=== PATIENT | female | born 1945 | race Caucasian/White ===

== ENCOUNTER 2017-02-25 10:17 | Emergency (ER) | payer MEDICARE, OTHER ==
[2017-02-25] MEDS ORDERED: ONDANSETRON HCL 4 MG/2 ML VIAL ONE (11:05)
[2017-02-25] MEDS ORDERED: BISMUTH SUBSALICYLATE 118 ML BTL ONE (11:39)
--- NOTE | 2017-02-25 13:42 | ER PHYSICIAN DOCUMENTATION ---
Physician Documentation [facility] Name:Jessika Salmeron Age:71 yrs Sex:Female :1945 Arrival Date:02/25/2017 Time:10:17 Bed4 Private MD: Amauri Ngo Disposition: 02/25/17 11:05 Discharged to Home/Self Care. Impression: Gastroenteritis vs. Food Poisoning, Dehydration. - Condition is Good. - Discharge Instructions: DIARRHEA VOMIT Viral 6yAdult - GASTROENTERITIS, Viral [6y-Adult]. - Prescriptions for Zofran 4 mg Oral Tablet - take 1 tablet by ORAL route every 12 hours .; 20 tablet. - Medical Reconciliation form form. - Follow up: Private Physician; When: As needed; Reason: Worsening of condition. - Problem is new. - Symptoms have improved. HPI: 02/25 10:52 This 71 yrs old Female presents to ER via Private Vehicle with complaints of sc Diarrhea. 10:52 The patient presents to the emergency department with diarrhea, without any complaints sc of abdominal pain. Onset: The symptom(s)/episode began/occurred 1 week(s) ago. Possible causes: travel, returned from [place], 4days ago. Associated signs and symptoms: Pertinent positives: lightheaded with standing. Severity of symptoms: At their worst the symptoms were moderate. Historical: - Allergies: SULFA (SULFONAMIDES); - Home Meds: 1. losartan 50 mg oral tab 1 tab once daily for Hypertension 2. hydrochlorothiazide 25 mg oral tab 1 tab once daily 3. allopurinol 100 mg oral tab 1 tab once daily for Gout 4. omeprazole 20 mg oral cpDR 1 cap once daily 5. tramadol 50 mg oral tab 2 tabs every 6 hours as needed for Pain 6. Colcrys 0.6 mg oral tab 1 tab once daily 7. acetaminophen 325 mg oral tab 2 tabs every 6 hours as needed for Pain 8. atorvastatin 40 mg oral tab 1 tab once daily - PMHx: Hypertension; GOUT; ARTHRITIS; macular degeneration; hyperlipidemia; - PSHx: gastric bypass; Hysterectomy; Knee surgery; parathyroid; - Tetanus: < 10 years. - Ebola Screening: : Patient negative for fever greater than or equal to 101.5 degrees Fahrenheit, and additional compatible Ebola Virus Disease symptoms. Patient denies exposure to infectious person. Patient denies travel to an Ebola-affected area in the 21 days before illness onset. . - Immunization history: Pneumococcal vaccine is up to date, Flu Vaccine < 1 year. - Social history: Smoking status: Patient states was never smoker of tobacco. ROS: 10:53 Constitutional: Negative for fever, chills, and weight loss. sc Eyes: Negative for injury, pain, redness, and discharge. ENT: Negative for injury, pain, and discharge. Neck: Negative for injury, pain, and swelling. Cardiovascular: Negative for chest pain, palpitations, and edema. Respiratory: Negative for shortness of breath, cough, wheezing, and pleuritic chest pain. Back: Negative for injury and pain. MS/Extremity: Negative for injury and deformity. Skin: Negative for injury, rash, and discoloration. 10:53 Neuro: Negative for headache, weakness, numbness, tingling, and seizure. sc 10:53 Abdomen/GI: Positive for nausea, diarrhea. Exam: Head/Face: Normocephalic, atraumatic. Eyes: Pupils equal round and reactive to light, extra-ocular motions intact. Lids and lashes normal. Conjunctiva and sclera are non-icteric and not injected. Cornea within normal limits. Periorbital areas with no swelling, redness, or edema. Neck: Trachea midline, no thyromegaly or masses palpated, and no cervical lymphadenopathy. Supple, full range of motion without nuchal rigidity, or vertebral point tenderness. No meningismus. Chest/axilla: Normal chest wall appearance and motion. Nontender with no deformity. No lesions are appreciated. Cardiovascular: Regular rate and rhythm with a normal S1 and S2. No gallops, murmurs, or rubs. Normal PMI, no JVD. No pulse deficits. Respiratory: Lungs have equal breath sounds bilaterally, clear to auscultation and percussion. No rales, rhonchi or wheezes noted. No increased work of breathing, no retractions or nasal flaring. 10:53 Back: No spinal tenderness. No costovertebral tenderness. Full range of motion. sc 10:53 Constitutional: The patient appears alert, awake, in obvious distress, mildly distressed, dehydrated. 10:53 ENT: Mouth: Oral mucosa: dry. 10:53 Abdomen/GI: Inspection: abdomen appears normal, Bowel sounds: hyperactive, Palpation: abdomen is soft and non-tender. 10:53 Skin: Turgor: is poor. Vital Signs: 10:30 BP 108 / 92; Pulse 80; Resp 16; Temp 98.2; Pulse Ox 92% on R/A; Weight 82.55 kg; Height lp 5 ft. 3 in. (160.02 cm); Pain 0/10; 11:00 BP 135 / 50; Pulse 61; Resp 16; Pulse Ox 91% on R/A; lp 12:00 BP 132 / 55; Pulse 68; Resp 16; Pulse Ox 97% on R/A; lp 13:39 BP 131 / 60; Pulse 67; Resp 16; Pulse Ox 93% on R/A; lp 10:30 Body Mass Index 32.24 (82.55 kg, 160.02 cm) lp MDM: 10:23 Patient medically screened. ak 10:54 Differential diagnosis: viral gastroenteritis, gastroenteritis. Data reviewed: vital sc signs, nurses notes, and as a result, I will continue to observe the patient, administer IV fluids. Counseling: I had a detailed discussion with the patient and/or guardian regarding: the historical points, exam findings, and any diagnostic results supporting the discharge/admit diagnosis, the need for outpatient follow up, to return to the emergency department if symptoms worsen or persist or if there are any questions or concerns that arise at home. Response to treatment: the patient's symptoms have markedly improved after treatment. 11:06 ED course: stool collection and outpt orders given to patient. ak 02/25 10:36 Order name: I & O; Complete Time: 10:52 ak 02/25 10:36 Order name: NPO; Complete Time: 10:52 ak Dispensed Medications: 10:38 Drug: Zofran 4 mg; Route: IVP; Infused Over: 2 mins; Site: left antecubital; lp 11:28 Follow up: Response: No adverse reaction; Nausea is decreased lp 10:52 Drug: NS 0.9% 1000 ml; Route: IV; Rate: bolus; Site: left antecubital; lp 11:24 Follow up: Response: No adverse reaction; No change in condition; IV Status: Completed lp infusion 11:25 Drug: NS 0.9% 1000 ml; Route: IV; Rate: 250 ml/hr; Site: left antecubital; lp 12:31 Follow up: IV Status: Completed infusion lp 12:31 Follow up: Response: No adverse reaction; No change in condition lp 11:28 Drug: Pepto-Bismol 30 ml; Route: PO; lp 12:02 Follow up: Response: No adverse reaction; No change in condition lp 12:40 Drug: NS 0.9% 1000 ml; Route: IV; Rate: bolus; Site: left antecubital; lp 13:30 Follow up: Response: No adverse reaction; No change in condition lp 13:30 Follow up: IV Status: Completed infusion; IV Intake: 1000ml lp Point of Care Testing: Urine Dip: 13:15 pH: 5.5; ; Specific [place]: 1.005; Ketones: Negative; Glucose: Negative; Protein: lp Negative; Leukocytes: Negative; Nitrite: Negative ; Blood: Negative; Bilirubin: Negative ; Urobilinogen: Normal Signatures: Tiki Mcclellan RN RN Amauri Lopez MD MD ak
--- NOTE | 2017-02-25 13:42 | ER NURSING DOCUMENTATION ---
Nurse's Notes [facility] Name:Jessika Salmeron Age:71 yrs Sex:Female :1945 Arrival Date:02/25/2017 Time:10:17 Bed4 Private MD: Diagnosis:Gastroenteritis vs. Food Poisoning;Dehydration Presentation: 02/25 10:29 Presenting complaint: Patient states: nausea, vomiting, diarrhea x 1 week. Presenting lp complaint:. Transition of care: Home. 10:29 Acuity: RAUL 3 lp 10:29 Method Of Arrival: Private Vehicle lp Triage Assessment: 10:35 General: Appears in no apparent distress, Behavior is appropriate for age. Pain: lp Complains of pain in abdomen. GI: Reports diarrhea, intolerance of fluids, intolerance of food, nausea, vomiting. Historical: - Allergies: SULFA (SULFONAMIDES); - Home Meds: 1. losartan 50 mg oral tab 1 tab once daily for Hypertension 2. hydrochlorothiazide 25 mg oral tab 1 tab once daily 3. allopurinol 100 mg oral tab 1 tab once daily for Gout 4. omeprazole 20 mg oral cpDR 1 cap once daily 5. tramadol 50 mg oral tab 2 tabs every 6 hours as needed for Pain 6. Colcrys 0.6 mg oral tab 1 tab once daily 7. acetaminophen 325 mg oral tab 2 tabs every 6 hours as needed for Pain 8. atorvastatin 40 mg oral tab 1 tab once daily - PMHx: Hypertension; GOUT; ARTHRITIS; macular degeneration; hyperlipidemia; - PSHx: gastric bypass; Hysterectomy; Knee surgery; parathyroid; - Tetanus: < 10 years. - Ebola Screening: : Patient negative for fever greater than or equal to 101.5 degrees Fahrenheit, and additional compatible Ebola Virus Disease symptoms. Patient denies exposure to infectious person. Patient denies travel to an Ebola-affected area in the 21 days before illness onset. . - Immunization history: Pneumococcal vaccine is up to date, Flu Vaccine < 1 year. - Social history: Smoking status: Patient states was never smoker of tobacco. Screenin:36 Infectious Disease Risk None. Abuse screen: Denies threats or abuse. Denies injuries lp from another. Nutritional screening: No deficits noted. Vital Signs: 10:30 BP 108 / 92; Pulse 80; Resp 16; Temp 98.2; Pulse Ox 92% on R/A; Weight 82.55 kg; Height lp 5 ft. 3 in. (160.02 cm); Pain 0/10; 11:00 BP 135 / 50; Pulse 61; Resp 16; Pulse Ox 91% on R/A; lp 12:00 BP 132 / 55; Pulse 68; Resp 16; Pulse Ox 97% on R/A; lp 13:39 BP 131 / 60; Pulse 67; Resp 16; Pulse Ox 93% on R/A; lp 10:30 Body Mass Index 32.24 (82.55 kg, 160.02 cm) lp ED Course: 10:19 Patient arrived in ED. claudia 10:23 Amauri Lopez MD is Attending Physician. sc 10:29 Tiki Mcclellan RN is Primary Nurse. lp 10:30 Triage completed. lp 10:[address] Lopez notified. lp 10:36 Valuables Remains with patient Patient has correct armband on for positive lp identification. Placed in gown. Bed in low position. Call light in reach. Side rails up X 1. 10:51 Inserted peripheral IV: 20 gauge in left antecubital area. lp 13:15 Urine collected. Clean catch specimen. lp 13:41 Discontinued IV intact, bleeding controlled, pressure dressing applied. lp Administered Medications: 10:38 Drug: Zofran 4 mg; Route: IVP; Infused Over: 2 mins; Site: left antecubital; lp 11:28 Follow up: Response: No adverse reaction; Nausea is decreased lp 10:52 Drug: NS 0.9% 1000 ml; Route: IV; Rate: bolus; Site: left antecubital; lp 11:24 Follow up: Response: No adverse reaction; No change in condition; IV Status: Completed lp infusion 11:25 Drug: NS 0.9% 1000 ml; Route: IV; Rate: 250 ml/hr; Site: left antecubital; lp 12:31 Follow up: IV Status: Completed infusion lp 12:31 Follow up: Response: No adverse reaction; No change in condition lp 11:28 Drug: Pepto-Bismol 30 ml; Route: PO; lp 12:02 Follow up: Response: No adverse reaction; No change in condition lp 12:40 Drug: NS 0.9% 1000 ml; Route: IV; Rate: bolus; Site: left antecubital; lp 13:30 Follow up: Response: No adverse reaction; No change in condition lp 13:30 Follow up: IV Status: Completed infusion; IV Intake: 1000ml lp Point of Care Testing: Urine Dip: 13:15 pH: 5.5; ; Specific [place]: 1.005; Ketones: Negative; Glucose: Negative; Protein: lp Negative; Leukocytes: Negative; Nitrite: Negative ; Blood: Negative; Bilirubin: Negative ; Urobilinogen: Normal Intake: 13:30 IV: 1000ml; Total: 1000ml. lp 13:41 IV: 1000ml (NS); Total: 2000ml. lp Output: 13:41 Urine: 500ml (Voided); Total: 500ml. lp Outcome: 11:05 Discharge ordered by . rafael 13:41 Patient left the ED. lp 13:41 Discharged to home ambulatory. lp 13:41 Condition: improved 13:41 Instructed on discharge instructions, follow up and referral plans. medication usage. Signatures: Tiki Mcclellan RN RN lp Chew, Scott, MD MD sc Davies, Jackie, Reg Reg claudia
== END 2017-02-25 13:41 | disposition home or self-care (01) ==
LOC: ER 10:17
DX: E86.0 Dehydration (principal); R19.7 Diarrhea, unspecified; R11.0 Nausea; I10 Essential (primary) hypertension; Z79.899 Other long term (current) drug therapy; Z98.84 Bariatric surgery status
CPT/HCPCS: 96361; 96374; 99284; J2405